=== PATIENT | male | born 1990 | race Caucasian/White ===

== ENCOUNTER → 2019-05-07 14:52 | Outpatient (CLI) | payer BC, SELFPAY ==
[2019-05-07 16:59] LABS: Hepatitis B Surface Antigen NEGATIVE s/c (NEGATIVE)
[2019-05-07 17:17] LABS: HIV 1 & 2 Ab/Ag 4th Gen Combo NEGATIVE (NEGATIVE); Hep C Virus Ab w/Reflex Quant NEGATIVE s/c (NEGATIVE)
[2019-05-08 17:50] LABS: Urine N gonorrhoeae NOT DETECTED
[2019-05-08 18:07] LABS: Urine Chlamydia NOT DETECTED
[2019-05-09 14:28] LABS: RPR Screen Nonreactive (Nonreactive)
== END ==
PROVIDERS: Visit Provider Physician Assistant
DX: L29.3 Anogenital pruritus, unspecified (principal); Z11.3 Encounter for screening for infections with a predominantly sexual mode of transmission
CPT/HCPCS: 36415; 86592; 86803; 87340; 87389; 87491; 87591